=== PATIENT | male | born 1940 | race Caucasian/White ===

== ENCOUNTER → 2016-10-01 | Outpatient (CLI) | payer MEDICARE | LOC: COL.RAD 09:13 | DX: M51.26 Other intervertebral disc displacement, lumbar region (principal); M41.86 Other forms of scoliosis, lumbar region ==

== ENCOUNTER → 2020-01-11 | Outpatient (CLI) | payer MEDICARE | LOC: COL.RAD 08:54 | DX: M51.36 Other intervertebral disc degeneration, lumbar region (principal); M47.816 Spondylosis without myelopathy or radiculopathy, lumbar region; M51.26 Other intervertebral disc displacement, lumbar region; M51.27 Other intervertebral disc displacement, lumbosacral region; M48.061 Spinal stenosis, lumbar region without neurogenic claudication; M89.38 Hypertrophy of bone, other site ==

== ENCOUNTER 2024-02-13 08:39 | Emergency (ER) | payer MEDICARE ==
[~2024-02-13] VITALS: Ht 190.5 cm; Wt 86.4 kg
[2024-02-13 08:45] VITALS: TEMP 98
[2024-02-13 10:07] LABS: BASO # 0.1 K/mm3 (0.0-0.2); BASO % 1.1 % (0.0-2.0); EOS # 0.5 K/mm3 (0.0-0.7); EOS % 7.2 % (0.0-4.0); GRAN # 3.2 K/mm3 (1.4-6.5); GRAN % 46.4 % (42.2-75.2); HEMOGLOBIN 11.3 g/dl (13.5-18.0); LYMPH # 2.5 K/mm3 (1.2-3.4); LYMPH % 35.3 % (20.0-51.0); MEAN CELL VOLUME 84 fl (80.0-100.0); MEAN CORPUSCULAR HEMOGLOBIN 28 pg (27-31); MEAN CORPUSCULAR HGB CONC 33 g/dl (33.0-37.0); MEAN PLATELET VOLUME 10.6 fl (7.4-10.4); MONO # 0.7 K/mm3 (0.1-0.6); MONO % 9.9 % (1.7-9.3); PLATELET COUNT 266 K/mm3 (130-400); REDCELL DISTRIBUTION WIDTH-CV 15.3 % (11.5-14.5)
[2024-02-13 10:17] LABS: ALBUMIN 4.1 g/dL (3.4-4.8); BILIRUBIN,TOTAL 0.6 mg/dL (0.2-1.2); CALCIUM 8.8 mg/dL (8.4-10.2); CREATININE, serum 1.14 mg/dL (0.72-1.25); POTASSIUM 4.1 mEq/L (3.5-4.5); TOTAL PROTEIN 7.5 g/dl (6.2-8.1)
[2024-02-13 10:23] LABS: TROPONIN-I 0.025 ng/mL (0.00-0.033)
[2024-02-13 10:31] LABS: HEMATOCRIT 34.4 % (42.0-52.0)
[2024-02-13 11:10] VITALS: BP 141/88; PULSE 60
== END 2024-02-13 11:10 | disposition home or self-care (01) ==
LOC: COL.ER 08:39
PROVIDERS: Personal Emergency Response Attendant
DX: M79.602 Pain in left arm (principal); R91.1 Solitary pulmonary nodule